=== PATIENT | male | born 1990 | race Caucasian/White ===

== ENCOUNTER → 2021-01-14 | Outpatient (CLI) | payer BC ==
--- NOTE | 2021-01-15 11:03 | RAD ---
XR ABDOMEN 2V History: Reason: EPIGASTRIC and UMBILLICAL PAIN, GAS, BLOATING, INDIGESTION / Spl. Instructions: / H istory: Technique: Upright and supine views of the abdomen. Comparison: None. Findings: Imaged lung bases are unremarkable. No pneumoperitoneum. Mild small bowel gas. Air and stool througho ut the colon. Mild colonic stool burden. No air-fluid levels. Postoperative changes hernia repair pro jecting over the right pelvis. Impression: 1. Nonobstructed bowel gas pattern. Electronically signed by: Lamont Berrios DO (01/15/2021 11:00 AM) [id number]
== END ==
LOC: RAD 10:31
PROVIDERS: ATTEND Physician Assistant
DX: R10.13 Epigastric pain (principal)
CPT/HCPCS: 74019